=== PATIENT | female | born 1970 | race Caucasian/White ===

== ENCOUNTER 2016-11-05 16:39 | Emergency (ER) | payer OTHER ==
[2016-11-05 16:51] VITALS: BP 114/74; PULSE 70; TEMP 98.2
[2016-11-05] MEDS ORDERED: AMOX TR/POT CLAV 875MG/125MG TABLETS (FP) PO ONE (16:53)
--- NOTE | 2016-11-05 16:54 | PDOC ---
History of Present Illness - General History Source: Patient, Old Records Exam Limitations: No Limitations <Gume Coronadofany - Last Filed: 11/05/16 16:50> - General History Source: Patient Exam Limitations: No Limitations - History of Present Illness Initial Comments: 11/05/16 17:03 45 y/o F with no PMHx presents to the ED with sore throat and left ear pain for two days. Patient reports associated diminished hearing in her left ear and subjective fevers. She reports about a half hour ago she felt more severe pain in her left ear, and states she feels like she popped her eardrum. She denies cough, runny nose, chills. She denies chest pain, SOB. No other complaints. <Caitlin Weston - Last Filed: 11/05/16 17:03> - General Chief Complaint: Sore Throat Stated Complaint: SORE THROAT, LEFT EAR PAIN Time Seen by Provider: 11/05/16 16:50 Past History <Zeinab Coronado - Last Filed: 11/05/16 16:50> <Caitlin Weston - Last Filed: 11/05/16 17:03> - Past Medical History Allergies/Adverse Reactions: Allergies Allergy/AdvReac Type Severity Reaction Status Date / Time No Known Allergies Allergy Verified 11/05/16 16:46 Home Medications: Ambulatory Orders Amoxicillin/Potassium Clav [Augmentin 875-125 Tablet] 1 each PO BID #14 tablet 11/05/16 Diclofenac Sodium 50 mg PO BID PRN 11/05/16 Review of Systems - Review of Systems Comments:: 11/05/16 17:03 GENERAL/CONSTITUTIONAL: (+) subjective fever. No chills. No weakness. HEAD, EYES, EARS, NOSE AND THROAT: (+) sore throat, left ear pain, left sided diminished hearing. No change in vision. CARDIOVASCULAR: No chest pain or shortness of breath. RESPIRATORY: No cough, wheezing, or hemoptysis. GASTROINTESTINAL: No nausea, vomiting, diarrhea or constipation. GENITOURINARY: No dysuria, frequency, or change in urination. MUSCULOSKELETAL: No joint or muscle swelling or pain. No neck or back pain. SKIN: No rash NEUROLOGIC: No headache, vertigo, loss of consciousness, or change in strength/ sensation. ENDOCRINE: No increased thirst. No abnormal weight change. HEMATOLOGIC/LYMPHATIC: No anemia, easy bleeding, or history of blood clots. ALLERGIC/IMMUNOLOGIC: No hives or skin allergy. <Mario Westonobhasmukh Dawkins - Last Filed: 11/05/16 17:03> *Physical Exam - Vital Signs Last Vital Signs Temp Pulse Resp BP Pulse Ox 98.2 F 70 15 114/74 98 11/05/16 16:45 11/05/16 16:45 11/05/16 16:45 11/05/16 16:45 11/05/16 16:45 - Physical Exam Comments: 11/05/16 17:03 GENERAL: Awake, alert, and fully oriented, in no acute distress HEAD: No signs of trauma EYES: PERRLA, EOMI, sclera anicteric, conjunctiva clear ENT: Oropharynx is mildly erythematous with no exudates. Right TM is normal, left TM is red and bulging. Auricles normal inspection, hearing grossly normal, nares patent, oropharynx clear without exudates. Moist mucosa NECK: Normal ROM, supple, no lymphadenopathy, JVD, or masses LUNGS: Breath sounds equal, clear to auscultation bilaterally. No wheezes, and no crackles HEART: Regular rate and rhythm, normal S1 and S2, no murmurs, rubs or gallops ABDOMEN: Soft, nontender, normoactive bowel sounds. No guarding, no rebound. No masses EXTREMITIES: Normal range of motion, no edema. No clubbing or cyanosis. No cords, erythema, or tenderness NEUROLOGICAL: Cranial nerves II through XII grossly intact. Normal speech, normal gait SKIN: Warm, Dry, normal turgor, no rashes or lesions noted. <TristaCaitlin Mariza - Last Filed: 11/05/16 17:03> ED Treatment Course - Medications Given in the ED: ED Medications Discontinued Medications Generic Name Dose Route Start Last Admin Trade Name Freq PRN Reason Stop Dose Admin Amoxicillin/Clavulanate Potassium 1 tab 11/05/16 16:53 11/05/16 16:57 Augmentin - 875mg Tablet PO 11/05/16 16:54 1 tab ONCE ONE Administration <WestonMarioCaitlin Mariza - Last Filed: 11/05/16 17:03> Medical Decision Making - Medical Decision Making 11/05/16 16:50 45-year-old female with no significant past medical history presents the emergency department with 4 day history of left ear pain and sore throat with subjective fevers at home. Physical exam is significant for otitis media Plan: 1. I will be prescribing Augmentin 875 one tablet twice daily for 7 days 2. Ibuprofen as needed for pain 3. Follow-up with PCP 4. Return to the emergency department if symptoms persist, worsen, or new symptoms arise. <Zeinab Coronado - Last Filed: 11/05/16 16:50> *DC/Admit/Observation/Transfer - Discharge Dispostion Admit: No - Attestations Physician Attestion: 11/05/16 16:53 I, Dr. Zeinab Coronado, attest that the scribes documentation that appears above has been prepared under my direction and personally reviewed by me in its entirety. I confirmed that the note above accurately reflects all work, treatment, procedures, and medical decision-making performed by me. <Zeinab Coronado - Last Filed: 11/05/16 16:50> - Attestations Scribe Attestion: 11/05/16 17:03 Documentation prepared by Caitlin Weston, acting as medical technologist chief for Zeinab Coronado MD. <Caitlin Weston - Last Filed: 11/05/16 17:03> Diagnosis at time of Disposition: Otitis media, left - Discharge Dispostion Disposition: HOME Condition at time of disposition: Stable - Prescriptions Prescriptions: Amoxicillin/Potassium Clav [Augmentin 875-125 Tablet] 1 each PO BID #14 tablet - Referrals Referrals: Deena Whitney [Primary Care Provider] - - Patient Instructions Printed Discharge Instructions: Middle Ear Infection Additional Instructions: You're being treated for an otitis media which is an ear infection. You're being prescribed Augmentin which is an antibiotic. Take 1 tablet twice daily for the next 7 days. Please follow-up with her primary care physician. He may take ibuprofen 600-800 mg every 6-8 hours as needed for pain. Return to the emergency department if symptoms persist, worsen or new symptoms arise.
[2016-11-05] MEDS ORDERED: AMOX TR/POT CLAV 875MG/125MG TABLETS (FP) ONE (16:55)
== END 2016-11-05 17:02 | disposition home or self-care (01) ==
LOC: FER 16:39
DX: H66.92 Otitis media, unspecified, left ear (principal)
CPT/HCPCS: 99281-25